=== PATIENT | male | born 1935 | race African-American/Black ===

== ENCOUNTER 2017-08-28 19:07 | Inpatient (IN) | payer MEDICARE ==
[~2017-08-28] VITALS: Ht 193 cm; Wt 102.5 kg
[~2017-08-28 19:07] MED LIST: HYDROMORPH IJ; TEMAZEPAM30 MG ORAL; TORSEMIDE10 MG PO
[2017-08-28] MEDS ORDERED: Sodium Chloride 500ML 500 ML IV ONE (19:15)
[2017-08-28 19:40] VITALS: BP 74/52
[2017-08-28 19:40] LABS: HEMATOCRIT 25.6 % (42.0-52.0); HEMOGLOBIN 8.5 G/DL (14.2-18.0); MEAN CORPUSCULAR VOLUME 116 FL (80-99); PLATELET COUNT 267 K/UL (150-450); RED BLOOD COUNT 2.21 M/UL (4.70-6.10); RED CELL DISTRIBUTION WIDTH 27.3 % (11.6-14.8); WHITE BLOOD COUNT 8.1 K/UL (4.8-10.8)
[2017-08-28 20:01] LABS: ANION GAP 5 mmol/L (5-15); BLOOD UREA NITROGEN 22 mg/dL (7-18); CALCIUM 8.5 MG/DL (8.5-10.1); CARBON DIOXIDE 31 MMOL/L (21-32); CHLORIDE 102 MMOL/L (98-107); CREATININE 4.7 MG/DL (0.55-1.30); SODIUM 138 MMOL/L (136-145)
[2017-08-28 20:14] LABS: ALANINE AMINOTRANSFERASE 15 U/L (12-78); ALBUMIN 2.5 G/DL (3.4-5.0); ALBUMIN/GLOBULIN RATIO 0.8 (1.0-2.7); ALKALINE PHOSPHATASE 179 U/L (46-116); ASPARTATE AMINO TRANSFERASE 28 U/L (15-37); BILIRUBIN,TOTAL 2.4 MG/DL (0.2-1.0); CKMB 1.3 NG/ML (0.0-3.6); CREATINE KINASE 31 U/L (26-308)
[2017-08-28 20:18] LABS: BILIRUBIN,DIRECT 1.6 MG/DL (0.0-0.3)
[2017-08-28] MEDS: Midodrine 10mg tab ORAL SCH (20:19)
[2017-08-28 20:54] VITALS: BP 86/48
[2017-08-28] MEDS ORDERED: ELIQUIS2.5 MG PO (21:30)
[2017-08-28] MEDS ORDERED: MIDODRINE HCL2.5 MG ORAL (21:30)
[2017-08-28] MEDS ORDERED: ALLOPURINOL100 M1 ORAL (21:30)
[2017-08-28] MEDS ORDERED: NEPHROVITE1 TAB ORAL (21:30)
[2017-08-28] MEDS ORDERED: MELATONIN1 M2 PO (21:30)
[2017-08-28] MEDS ORDERED: OMEPRAZOLE20 M2 ORAL (21:30)
[2017-08-28] MEDS ORDERED: METOLAZONE5 MG PO (21:30)
[2017-08-28] MEDS ORDERED: OYSTERCAL-D 501 EACH PO (21:30)
[2017-08-28] MEDS ORDERED: ZANTAC150 MG ORAL (21:30)
[2017-08-28] MEDS ORDERED: VITAMIN D22000 UNIT PO (21:30)
[2017-08-28] MEDS ORDERED: GUAIFENESI100 MG/5 M ORAL (21:43)
[2017-08-28] MEDS ORDERED: TYLENOL EXTRA500 MG ORAL (21:43)
[2017-08-28] MEDS ORDERED: HYDROCORTISONE30 G2 TP (21:43)
[2017-08-28] MEDS ORDERED: BISACODYL5 MG ORAL (21:43)
[2017-08-28] MEDS ORDERED: ALBUTEROL SULF8.5 GM INH (21:43)
[2017-08-28] MEDS ORDERED: BENZONATATE100 MG ORAL (21:43)
[2017-08-28] MEDS ORDERED: TAMSULOSIN HCL0.4 MG ORAL (21:43)
[2017-08-28] MEDS ORDERED: VISTARIL50 MG ORAL (21:43)
[2017-08-28] MEDS ORDERED: DOCUSATE SODIU100 MG ORAL (21:43)
[2017-08-28] MEDS ORDERED: TRAZODONE HCL150 MG ORAL (21:43)
[2017-08-28] MEDS ORDERED: CALCIUM CARBON200 M1 PO (21:43)
[2017-08-28] MEDS ORDERED: MIRALAX17 G2 ORAL (21:43)
[2017-08-28] MEDS ORDERED: SENNA8.6 M2 PO (21:43)
[2017-08-28] MEDS ORDERED: TESSALON PERLE100 MG ORAL (21:43)
[2017-08-28] MEDS ORDERED: Phenylephrine 10mg/ml Vial IVP ONE (21:45)
[2017-08-28] MEDS ORDERED: dilTIAZem HCl 25mg/5ml Inj IVP ONE (22:00)
[2017-08-28 22:14] VITALS: BP 75/52
[2017-08-28] MEDS ORDERED: Lidocaine 1% MPF 10mg/ml 5ml ONE (22:22)
--- NOTE | 2017-08-28 23:11 | Emergency Room Report ---
History of Present Illness General Chief Complaint: General Complaint Source: EMS Present Illness HPI This is an 81-year-old male who is brought in by EMS after increased generalized weakness low blood pressure. Patient was noted to have prior history of end-stage renal disease as well as dialysis. Patient was dialyzed yesterday. The patient had been noted to have low blood pressure for approximately one week. He had prior history of congestive heart failure with an unknown ejection fraction. 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 The patient is DO NOT RESUSCITATE per his wishes however he would like the transfuse and and pressor management if needed. The patient was noted to have increased nonproductive cough. He had been noted to be taking Elliquis for atrial fibrillation which is chronic. The patient still makes urine. He reports having recent hospitalization at [facility]. Patient is normally dialyzed Wednesday and Wednesday Allergies: Coded Allergies: No Known Allergies (Unverified , 08/28/17) Patient History Past Medical History: see triage record Reviewed Nursing Documentation: PMH: Agreed, PSxH: Agreed Nursing Documentation-PMH Past Medical History: No History, Except For Hx Dialysis: Yes - MWF Review of Systems All Other Systems: negative except mentioned in HPI Physical Exam Vital Signs Date Time Temp Pulse Resp B/P (MAP) Pulse Ox O2 Delivery O2 Flow Rate FiO2 08/28/17 18:57 92 18 83/49 100 Nasal Cannula 4.0 08/28/17 19:40 97.6 97.6 08/28/17 22:14 50 Sp02 EP Interpretation: reviewed, normal General Appearance: normal inspection, well appearing, no apparent distress, alert, GCS 15 Head: atraumatic ENT: normal ENT inspection, hearing grossly normal, normal voice Neck: normal inspection, full range of motion, supple, no bony tend Respiratory: normal inspection, lungs clear, normal breath sounds, no respiratory distress, no retraction, no wheezing Cardiovascular #1: regular rate, rhythm, no edema Gastrointestinal: normal inspection, normal bowel sounds, non tender, soft, no guarding, no hernia Genitourinary: no CVA tenderness Musculoskeletal: normal inspection, back normal, normal range of motion Neurologic: normal inspection, alert, responsive, speech normal Psychiatric: normal inspection, judgement/insight normal, mood/affect normal Skin: normal inspection, normal color, no rash Procedures Critical Care Time Critical Care Time Patient had a critical medical condition which untreated could potentially result in life or limb threatening injury. Total critical care time excluding procedures approximately 45 minutes. Central Line Central Line : Consent: Verbal Central Line Lumen: triple Maximal Sterile Barrier Tech: yes cap, yes mask, yes sterile gown, yes sterile gloves, yes large sterile sheet, yes hand hygiene, yes chlorhexidine prep Central Line Postion: internal jugular (L) Anesthesia: Lidocaine Complications: none Central Line Post Position: sutured, good blood return, position confirmed w / CXR Attempts: One Patient Tolerated: Well Complications: None Medical Decision Making Diagnostic Impression: Primary Impression: CHF (congestive heart failure) Additional Impressions: ESRD (end stage renal disease) Atrial fibrillation with RVR Pleural effusion on right ER Course The patient presented for generalized weakness and cough.Patient presented for generalized weakness. Differential diagnosis included was not limited to anemia , cardiomyopathy, urinary tract infection, electrolyte abnormality, hypothyroidism, myocardial infarction, myasthenia gravis, dehydration, among others. Because of complexity of patient's case laboratory testing and imaging studies were ordered. EKG interpreted by me showed H. fibrillation with a rate of [address] or T wave changes. A rhythm strip showed atrial fibrillation with a rate approximately 130. The patient noted be hypotensive. Patient given IV fluids the without any change in blood pressure. Patient consented for the patient started on pressor. Dr. Dominguez was contacted for inpatient management for Dr. Ibrahim. Labs Test 08/28/17 19:15 08/28/17 22:15 08/28/17 23:00 White Blood Count 8.1 K/UL (4.8-10.8) Red Blood Count 2.21 M/UL (4.70-6.10) Hemoglobin 8.5 G/DL (14.2-18.0) Hematocrit 25.6 % (42.0-52.0) Mean Corpuscular Volume 116 FL (80-99) Mean Corpuscular Hemoglobin 38.7 PG (27.0-31.0) Mean Corpuscular Hemoglobin Concent 33.4 G/DL (32.0-36.0) Red Cell Distribution Width 27.3 % (11.6-14.8) Platelet Count 267 K/UL (150-450) Mean Platelet Volume 14.7 FL (6.5-10.1) Neutrophils (%) (Auto) % (45.0-75.0) Lymphocytes (%) (Auto) % (20.0-45.0) Monocytes (%) (Auto) % (1.0-10.0) Eosinophils (%) (Auto) % (0.0-3.0) Basophils (%) (Auto) % (0.0-2.0) Differential Total Cells Counted 100 Neutrophils % (Manual) 40 % (45-75) Lymphocytes % (Manual) 30 % (20-45) Monocytes % (Manual) 16 % (1-10) Eosinophils % (Manual) 9 % (0-3) Basophils % (Manual) 1 % (0-2) Band Neutrophils 4 % (0-8) Platelet Estimate Adequate Platelet Morphology Normal Red Blood Cell Morphology Polychromasia 1+ Hypochromasia 1+ Anisocytosis 2+ Macrocytosis 2+ Sodium Level 138 MMOL/L (136-145) Potassium Level 5.0 MMOL/L (3.5-5.1) Chloride Level 102 MMOL/L (98-107) Carbon Dioxide Level 31 MMOL/L (21-32) Anion Gap 5 mmol/L (5-15) Blood Urea Nitrogen 22 mg/dL (7-18) Creatinine 4.7 MG/DL (0.55-1.30) Estimat Glomerular Filtration Rate mL/min (>60) Glucose Level 105 MG/DL (74-106) Calcium Level 8.5 MG/DL (8.5-10.1) Total Bilirubin 2.4 MG/DL (0.2-1.0) Direct Bilirubin 1.6 MG/DL (0.0-0.3) Aspartate Amino Transf (AST/SGOT) 28 U/L (15-37) Alanine Aminotransferase (ALT/SGPT) 15 U/L (12-78) Alkaline Phosphatase 179 U/L (46-116) Total Creatine Kinase 31 U/L (26-308) Creatine Kinase MB 1.3 NG/ML (0.0-3.6) Creatine Kinase MB Relative Index 4.1 Troponin I 0.042 ng/mL (0.000-0.056) Total Protein 5.6 G/DL (6.4-8.2) Albumin 2.5 G/DL (3.4-5.0) Globulin 3.1 g/dL Albumin/Globulin Ratio 0.8 (1.0-2.7) EKG Diagnostic Results Rate: tachycardiac Rhythm Strip Diag. Results EP Interpretation: yes Rhythm: NSR, no PVC's, no ectopy Last Vital Signs Date Time Temp Pulse Resp B/P (MAP) Pulse Ox O2 Delivery O2 Flow Rate FiO2 08/28/17 22:29 130 22 Bi-pap 50 08/28/17 22:14 100 08/28/17 22:09 75/52 08/28/17 20:54 97.9 3.0 97.9 Status: unchanged Disposition: ADMITTED INPATIENT Condition: Serious Referrals: NON PHYSICIAN (PCP) Roverto Bloom Aug 28, 2017 23:11
[2017-08-28] MEDS ORDERED: cefTRIAXone 2 GM in D5W 55 ML IVPB ONE (23:15)
[2017-08-28 23:30] VITALS: BP 79/51
[2017-08-28] MEDS ORDERED: PHENYLEPHRINE IV SCH (23:45)
[2017-08-28] MEDS ORDERED: NS IV SCH (23:45)
[2017-08-28] MEDS ORDERED: Phenylephrine 10mg/ml 5ml vial IV ONE (23:52)
[2017-08-29] VITALS (36 sets, daily range): BP systolic 61–121; BP diastolic 34–99
[2017-08-29] MEDS: Phenylephrine 50 MG in D5W 245 ML IV SCH ×2 (00:55→06:21)
[2017-08-29] MEDS ORDERED: Vancomycin 1500mg IVPB ONE (04:30)
[2017-08-29] MEDS: Heparin 5000 units/ml inj SUBQ SCH ×2 (05:27→09:29)
[2017-08-29] MEDS ORDERED: Zosyn 2.25gm inj ONE (05:29)
[2017-08-29] MEDS ORDERED: Phenylephrine 10mg/ml 5ml vial IV ONE (05:58)
[2017-08-29] MEDS ORDERED: Zosyn 2.25 gm in D5W 55ml IV SCH (06:00)
[2017-08-29 06:16] LABS: HEMATOCRIT 23.5 % (42.0-52.0); HEMOGLOBIN 7.7 G/DL (14.2-18.0); MEAN CORPUSCULAR VOLUME 118 FL (80-99); PLATELET COUNT 288 K/UL (150-450); RED CELL DISTRIBUTION WIDTH 27.1 % (11.6-14.8); WHITE BLOOD COUNT 8.8 K/UL (4.8-10.8)
[2017-08-29 06:51] LABS: ALANINE AMINOTRANSFERASE 12 U/L (12-78); ALBUMIN 2.5 G/DL (3.4-5.0); ALBUMIN/GLOBULIN RATIO 0.9 (1.0-2.7); ALKALINE PHOSPHATASE 158 U/L (46-116); ANION GAP 7 mmol/L (5-15); ASPARTATE AMINO TRANSFERASE 16 U/L (15-37); BILIRUBIN,TOTAL 2.4 MG/DL (0.2-1.0); BLOOD UREA NITROGEN 23 mg/dL (7-18); CALCIUM 8.2 MG/DL (8.5-10.1); CARBON DIOXIDE 30 MMOL/L (21-32); CHLORIDE 102 MMOL/L (98-107); POTASSIUM 4.4 MMOL/L (3.5-5.1); SODIUM 139 MMOL/L (136-145)
[2017-08-29 06:52] LABS: BILIRUBIN,DIRECT 1.7 MG/DL (0.0-0.3)
[2017-08-29] MEDS ORDERED: Zosyn 3.375gm in NS 110ml IVPB SCH (09:00)
[2017-08-29] MEDS ORDERED: Pantoprazole Inj IVP SCH ×2 (09:00→11:00)
[2017-08-29] MEDS: Midodrine 10mg tab ORAL SCH (09:25)
--- NOTE | 2017-08-29 09:33 | Diagnostic Imaging Report ---
Indication: Reason For Exam: SOB Technique: XRAY Chest 1v Comparison:None Findings: The heart is enlarged. There is an ICD on the left. A right jugular dialysis catheter is in place with the tip in the right atrium. Pulmonary vascular redistribution is present. There is a right pleural effusion. No acute osseous abnormality. Impression: Cardiomegaly with congestive heart failure and right pleural effusion. Dialysis permacath. ICD.
--- NOTE | 2017-08-29 10:08 | Diagnostic Imaging Report ---
Indication: Line placement Technique: XRAY Chest 1v Comparison:08/28/2017 Findings: Compared previous study the heart remains enlarged. This image is in a different position. Right pleural effusion is again noted which is probably unchanged. Congestive changes are again seen. A left jugular central catheter is now in place with the tip in the region of the left brachiocephalic vein. No pneumothorax. No other change. Impression: Cardiomegaly with congestive heart failure and right pleural effusion. ICD remains. Placement of left jugular central catheter with the tip in the region of the brachiocephalic vein. Remaining lines unchanged.
--- NOTE | 2017-08-29 10:51 | Consultation ---
Consult Note Consult Note asked to evaluate for dialysis management This is an 81-year-old male who is brought in by EMS after increased generalized weakness low blood pressure. Patient was noted to have prior history of end-stage renal disease as well as dialysis. Patient was dialyzed yesterday. The patient had been noted to have low blood pressure for approximately one week. He had prior history of congestive heart failure with an unknown ejection fraction. 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 The patient is DO NOT RESUSCITATE per his wishes however he would like the transfuse and and pressor management if needed. The patient was noted to have increased nonproductive cough. He had been noted to be taking Elliquis for atrial fibrillation which is chronic. The patient still makes urine. He reports having recent hospitalization at [facility]. Patient is normally dialyzed Wednesday and Wednesday currently in ICU max pressors obtunded discussed with RN last HD Wednesday Assessment/Plan ESRD has right permacath presents with shock, ? Septic Acute encephalopathy Anemia Pace maker plan: Transfuse one unit- IV protonix trial hydrocortisone iv manrique antibiotics poor prognosis KRISTEL NUNO Aug 29, 2017 10:51
--- NOTE | 2017-08-29 11:04 | Pulmonolgy Critical Care Note ---
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, 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 Discussed with: nurses, consultants, pillowcase folderinclusion manager - Objective Last 24 Hour Vital Signs Date Time Temp Pulse Resp B/P (MAP) Pulse Ox O2 Delivery O2 Flow Rate FiO2 08/29/17 07:00 132 28 79/54 100 Nasal Cannula 3.0 08/29/17 06:30 130 26 78/51 100 Nasal Cannula 3.0 08/29/17 06:21 127 77/46 08/29/17 05:30 128 32 61/51 100 Nasal Cannula 3.0 08/29/17 05:00 133 30 90/58 100 Nasal Cannula 3.0 08/29/17 04:45 134 30 72/46 100 Nasal Cannula 3.0 08/29/17 04:30 134 30 76/44 100 Nasal Cannula 3.0 08/29/17 04:15 133 30 85/58 100 Nasal Cannula 3.0 08/29/17 04:00 98.3 133 30 89/61 100 Nasal Cannula 3.0 98.3 08/29/17 04:00 132 08/29/17 03:45 133 30 96/58 100 Nasal Cannula 3.0 08/29/17 03:30 133 30 96/58 100 Nasal Cannula 3.0 08/29/17 03:15 133 24 76/63 100 Nasal Cannula 3.0 08/29/17 03:00 134 26 89/51 100 Nasal Cannula 3.0 08/29/17 02:45 134 25 89/51 100 Nasal Cannula 3.0 08/29/17 02:30 134 24 84/51 100 Nasal Cannula 3.0 08/29/17 02:15 133 24 96/47 100 Nasal Cannula 3.0 08/29/17 02:00 133 08/29/17 02:00 98.3 133 24 96/47 100 Nasal Cannula 3.0 98.3 08/29/17 01:45 97.2 119 24 104/86 100 Bi-pap 3.0 50 97.2 08/29/17 01:32 97.2 119 24 104/86 100 Bi-pap 3.0 50 97.2 08/29/17 00:55 130 71/44 08/29/17 00:30 97.9 129 24 121/99 96 Bi-pap 3.0 50 97.9 08/28/17 23:30 97.9 125 28 79/51 100 Bi-pap 3.0 50 97.9 08/28/17 22:29 130 22 Bi-pap 50 08/28/17 22:14 97.9 127 22 75/52 100 3.0 50 97.9 08/28/17 22:14 130 22 100 Facial 50 08/28/17 22:09 129 75/52 08/28/17 20:54 97.9 127 18 86/48 100 Nasal Cannula 3.0 97.9 08/28/17 19:40 97.6 128 18 74/52 100 Nasal Cannula 4.0 97.6 08/28/17 18:57 92 18 83/49 100 Nasal Cannula 4.0 Status: somnolent Condition: critical HEENT: atraumatic Neck: full ROM Lungs: clear Heart: HR/BP stable Abdomen: soft, non-tender Extremities: no C/C/E, edema Critical Care - Subjective ROS Limited/Unobtainable: Yes ICU Day: 1 Interval Events: 81-year-old male with hx of ESRF on HD, CHf, A-fib, ES heart disease with ICD who is brought in by EMS after increased generalized weakness low blood pressure. Patient was dialyzed yesterday. The patient has low blood pressure for approximately one week. The patient is DO NOT RESUSCITATE per his wishes however he would like the transfuse and and pressor management if needed. The patient was noted to have increased nonproductive cough. The patient still makes urine. He reports having recent hospitalization at [facility]. Patient is normally dialyzed Wednesday and Wednesday. He was hypotensive in ER, was started on Neosynephrine in ER and transferred to ICU. FI02: 50 Sputum Amount: None Drips: Neosynephrine I&O: Intake and Output 08/28/17 08/29/17 19:00 07:00 Intake Total 291 ml Output Total 10 ml Balance 281 ml Intake Oral 30 ml IV Total 261 ml Output Urine Total 10 ml # Voids 1 CXR: pulmonary edema, pleural effusion Labs: Laboratory Tests Test 08/28/17 19:15 08/28/17 22:15 08/28/17 23:00 08/29/17 05:45 White Blood Count 8.1 K/UL (4.8-10.8) 8.8 K/UL (4.8-10.8) Red Blood Count 2.21 M/UL (4.70-6.10) L 2.00 M/UL (4.70-6.10) L Hemoglobin 8.5 G/DL (14.2-18.0) L 7.7 G/DL (14.2-18.0) L Hematocrit 25.6 % (42.0-52.0) L 23.5 % (42.0-52.0) L Mean Corpuscular Volume 116 FL (80-99) H 118 FL (80-99) H Mean Corpuscular Hemoglobin 38.7 PG (27.0-31.0) H 38.6 PG (27.0-31.0) H Mean Corpuscular Hemoglobin Concent 33.4 G/DL (32.0-36.0) 32.7 G/DL (32.0-36.0) Red Cell Distribution Width 27.3 % (11.6-14.8) H 27.1 % (11.6-14.8) H Platelet Count 267 K/UL (150-450) 288 K/UL (150-450) Mean Platelet Volume 14.7 FL (6.5-10.1) H 12.5 FL (6.5-10.1) H Neutrophils (%) (Auto) % (45.0-75.0) % (45.0-75.0) Lymphocytes (%) (Auto) % (20.0-45.0) % (20.0-45.0) Monocytes (%) (Auto) % (1.0-10.0) % (1.0-10.0) Eosinophils (%) (Auto) % (0.0-3.0) % (0.0-3.0) Basophils (%) (Auto) % (0.0-2.0) % (0.0-2.0) Differential Total Cells Counted 100 100 Neutrophils % (Manual) 40 % (45-75) L 70 % (45-75) Lymphocytes % (Manual) 30 % (20-45) 7 % (20-45) L Monocytes % (Manual) 16 % (1-10) H 11 % (1-10) H Eosinophils % (Manual) 9 % (0-3) H 7 % (0-3) H Basophils % (Manual) 1 % (0-2) 0 % (0-2) Band Neutrophils 4 % (0-8) 5 % (0-8) Platelet Estimate Adequate Adequate Platelet Morphology Normal Normal Red Blood Cell Morphology Polychromasia 1+ Hypochromasia 1+ 1+ Anisocytosis 2+ 2+ Macrocytosis 2+ 2+ Sodium Level 138 MMOL/L (136-145) 139 MMOL/L (136-145) Potassium Level 5.0 MMOL/L (3.5-5.1) 4.4 MMOL/L (3.5-5.1) Chloride Level 102 MMOL/L (98-107) 102 MMOL/L (98-107) Carbon Dioxide Level 31 MMOL/L (21-32) 30 MMOL/L (21-32) Anion Gap 5 mmol/L (5-15) 7 mmol/L (5-15) Blood Urea Nitrogen 22 mg/dL (7-18) H 23 mg/dL (7-18) H Creatinine 4.7 MG/DL (0.55-1.30) H 5.0 MG/DL (0.55-1.30) H Estimat Glomerular Filtration Rate mL/min (>60) mL/min (>60) Glucose Level 105 MG/DL (74-106) 107 MG/DL (74-106) H Lactic Acid Level 2.00 mmol/L (0.66-2.22) 1.70 mmol/L (0.66-2.22) Calcium Level 8.5 MG/DL (8.5-10.1) 8.2 MG/DL (8.5-10.1) L Total Bilirubin 2.4 MG/DL (0.2-1.0) H 2.4 MG/DL (0.2-1.0) H Direct Bilirubin 1.6 MG/DL (0.0-0.3) H 1.7 MG/DL (0.0-0.3) H Aspartate Amino Transf (AST/SGOT) 28 U/L (15-37) 16 U/L (15-37) Alanine Aminotransferase (ALT/SGPT) 15 U/L (12-78) 12 U/L (12-78) Alkaline Phosphatase 179 U/L (46-116) H 158 U/L (46-116) H Total Creatine Kinase 31 U/L (26-308) Creatine Kinase MB 1.3 NG/ML (0.0-3.6) Creatine Kinase MB Relative Index 4.1 Troponin I 0.042 ng/mL (0.000-0.056) 0.026 ng/mL (0.000-0.056) Total Protein 5.6 G/DL (6.4-8.2) L 5.3 G/DL (6.4-8.2) L Albumin 2.5 G/DL (3.4-5.0) L 2.5 G/DL (3.4-5.0) L Globulin 3.1 g/dL 2.8 g/dL Albumin/Globulin Ratio 0.8 (1.0-2.7) L 0.9 (1.0-2.7) L Urine Color Pending Urine Appearance Pending Urine pH Pending Urine Specific [place] Pending Urine Protein Pending Urine Glucose (UA) Pending Urine Ketones Pending Urine Occult Blood Pending Urine Nitrite Pending Urine Bilirubin Pending Urine Urobilinogen Pending Urine Leukocyte Esterase Pending DESHAUN PARADA Aug 29, 2017 11:04
[2017-08-29] MEDS ORDERED: Hydrocortisone 100mg Inj IV ONE (11:15)
[2017-08-29 11:26] LABS: PHOSPHORUS 4.1 MG/DL (2.5-4.9)
[2017-08-29] MEDS ORDERED: Morphine Sulfate 4mg/ml Inj ONE (11:50)
[2017-08-29] MEDS ORDERED: Phenylephrine 50 MG in D5W 245 ML IV SCH (12:00)
[2017-08-29] MEDS ORDERED: Morphine Sulfate 2mg/ml Inj IVP PRN (12:00)
[2017-08-29] MEDS: Morphine Sulfate 4mg/ml Inj IVP PRN ×2 (13:23→14:50)
[2017-08-29] MEDS ORDERED: Piperacillin/Tazobactam 2.25 GM in NS 55 ML IV SCH (14:00)
[2017-08-29] MEDS ORDERED: Hydrocortisone 100mg Inj IV SCH (14:00)
--- NOTE | 2017-08-29 14:20 | Cardiac Electrophysiology PN ---
Subjective Subjective [id number] Family decided for the patient to be comfort care Objective Last 24 Hour Vital Signs Date Time Temp Pulse Resp B/P (MAP) Pulse Ox O2 Delivery O2 Flow Rate FiO2 08/29/17 11:00 123 37 77/48 87 Nasal Cannula 3.0 08/29/17 10:30 129 35 85/55 82 Nasal Cannula 3.0 08/29/17 10:00 129 34 95/49 84 Nasal Cannula 3.0 08/29/17 09:30 129 35 84/53 90 Nasal Cannula 3.0 08/29/17 09:00 131 34 85/48 90 Nasal Cannula 3.0 08/29/17 08:30 127 34 70/42 85 Nasal Cannula 3.0 08/29/17 08:00 125 08/29/17 08:00 98.2 129 32 92/53 80 Nasal Cannula 3.0 98.2 08/29/17 07:30 131 30 88/51 86 Nasal Cannula 3.0 08/29/17 07:00 132 28 79/54 100 Nasal Cannula 3.0 08/29/17 06:30 130 26 78/51 100 Nasal Cannula 3.0 08/29/17 06:21 127 77/46 08/29/17 05:30 128 32 61/51 100 Nasal Cannula 3.0 08/29/17 05:00 133 30 90/58 100 Nasal Cannula 3.0 08/29/17 04:45 134 30 72/46 100 Nasal Cannula 3.0 08/29/17 04:30 134 30 76/44 100 Nasal Cannula 3.0 08/29/17 04:15 133 30 85/58 100 Nasal Cannula 3.0 08/29/17 04:00 98.3 133 30 89/61 100 Nasal Cannula 3.0 98.3 08/29/17 04:00 132 08/29/17 03:45 133 30 96/58 100 Nasal Cannula 3.0 08/29/17 03:30 133 30 96/58 100 Nasal Cannula 3.0 08/29/17 03:15 133 24 76/63 100 Nasal Cannula 3.0 08/29/17 03:00 134 26 89/51 100 Nasal Cannula 3.0 08/29/17 02:45 134 25 89/51 100 Nasal Cannula 3.0 08/29/17 02:30 134 24 84/51 100 Nasal Cannula 3.0 08/29/17 02:15 133 24 96/47 100 Nasal Cannula 3.0 08/29/17 02:00 133 08/29/17 02:00 98.3 133 24 96/47 100 Nasal Cannula 3.0 98.3 08/29/17 01:45 97.2 119 24 104/86 100 Bi-pap 3.0 50 97.2 08/29/17 01:32 97.2 119 24 104/86 100 Bi-pap 3.0 50 97.2 08/29/17 00:55 130 71/44 08/29/17 00:30 97.9 129 24 121/99 96 Bi-pap 3.0 50 97.9 08/28/17 23:30 97.9 125 28 79/51 100 Bi-pap 3.0 50 97.9 08/28/17 22:29 130 22 Bi-pap 50 08/28/17 22:14 97.9 127 22 75/52 100 3.0 50 97.9 08/28/17 22:14 130 22 100 Facial 50 08/28/17 22:09 129 75/52 08/28/17 20:54 97.9 127 18 86/48 100 Nasal Cannula 3.0 97.9 08/28/17 19:40 97.6 128 18 74/52 100 Nasal Cannula 4.0 97.6 08/28/17 18:57 92 18 83/49 100 Nasal Cannula 4.0 Intake and Output 08/28/17 08/29/17 19:00 07:00 Intake Total 291 ml Output Total 10 ml Balance 281 ml Intake Oral 30 ml IV Total 261 ml Output Urine Total 10 ml # Voids 1 Laboratory Tests Test 08/28/17 19:15 08/28/17 22:15 08/28/17 23:00 08/29/17 05:45 White Blood Count 8.1 K/UL (4.8-10.8) 8.8 K/UL (4.8-10.8) Red Blood Count 2.21 M/UL (4.70-6.10) L 2.00 M/UL (4.70-6.10) L Hemoglobin 8.5 G/DL (14.2-18.0) L 7.7 G/DL (14.2-18.0) L Hematocrit 25.6 % (42.0-52.0) L 23.5 % (42.0-52.0) L Mean Corpuscular Volume 116 FL (80-99) H 118 FL (80-99) H Mean Corpuscular Hemoglobin 38.7 PG (27.0-31.0) H 38.6 PG (27.0-31.0) H Mean Corpuscular Hemoglobin Concent 33.4 G/DL (32.0-36.0) 32.7 G/DL (32.0-36.0) Red Cell Distribution Width 27.3 % (11.6-14.8) H 27.1 % (11.6-14.8) H Platelet Count 267 K/UL (150-450) 288 K/UL (150-450) Mean Platelet Volume 14.7 FL (6.5-10.1) H 12.5 FL (6.5-10.1) H Neutrophils (%) (Auto) % (45.0-75.0) % (45.0-75.0) Lymphocytes (%) (Auto) % (20.0-45.0) % (20.0-45.0) Monocytes (%) (Auto) % (1.0-10.0) % (1.0-10.0) Eosinophils (%) (Auto) % (0.0-3.0) % (0.0-3.0) Basophils (%) (Auto) % (0.0-2.0) % (0.0-2.0) Differential Total Cells Counted 100 100 Neutrophils % (Manual) 40 % (45-75) L 70 % (45-75) Lymphocytes % (Manual) 30 % (20-45) 7 % (20-45) L Monocytes % (Manual) 16 % (1-10) H 11 % (1-10) H Eosinophils % (Manual) 9 % (0-3) H 7 % (0-3) H Basophils % (Manual) 1 % (0-2) 0 % (0-2) Band Neutrophils 4 % (0-8) 5 % (0-8) Platelet Estimate Adequate Adequate Platelet Morphology Normal Normal Red Blood Cell Morphology Polychromasia 1+ Hypochromasia 1+ 1+ Anisocytosis 2+ 2+ Macrocytosis 2+ 2+ Sodium Level 138 MMOL/L (136-145) 139 MMOL/L (136-145) Potassium Level 5.0 MMOL/L (3.5-5.1) 4.4 MMOL/L (3.5-5.1) Chloride Level 102 MMOL/L (98-107) 102 MMOL/L (98-107) Carbon Dioxide Level 31 MMOL/L (21-32) 30 MMOL/L (21-32) Anion Gap 5 mmol/L (5-15) 7 mmol/L (5-15) Blood Urea Nitrogen 22 mg/dL (7-18) H 23 mg/dL (7-18) H Creatinine 4.7 MG/DL (0.55-1.30) H 5.0 MG/DL (0.55-1.30) H Estimat Glomerular Filtration Rate mL/min (>60) mL/min (>60) Glucose Level 105 MG/DL (74-106) 107 MG/DL (74-106) H Lactic Acid Level 2.00 mmol/L (0.66-2.22) 1.70 mmol/L (0.66-2.22) Calcium Level 8.5 MG/DL (8.5-10.1) 8.2 MG/DL (8.5-10.1) L Total Bilirubin 2.4 MG/DL (0.2-1.0) H 2.4 MG/DL (0.2-1.0) H Direct Bilirubin 1.6 MG/DL (0.0-0.3) H 1.7 MG/DL (0.0-0.3) H Aspartate Amino Transf (AST/SGOT) 28 U/L (15-37) 16 U/L (15-37) Alanine Aminotransferase (ALT/SGPT) 15 U/L (12-78) 12 U/L (12-78) Alkaline Phosphatase 179 U/L (46-116) H 158 U/L (46-116) H Total Creatine Kinase 31 U/L (26-308) Creatine Kinase MB 1.3 NG/ML (0.0-3.6) Creatine Kinase MB Relative Index 4.1 Troponin I 0.042 ng/mL (0.000-0.056) 0.026 ng/mL (0.000-0.056) Total Protein 5.6 G/DL (6.4-8.2) L 5.3 G/DL (6.4-8.2) L Albumin 2.5 G/DL (3.4-5.0) L 2.5 G/DL (3.4-5.0) L Globulin 3.1 g/dL 2.8 g/dL Albumin/Globulin Ratio 0.8 (1.0-2.7) L 0.9 (1.0-2.7) L Urine Color Pending Urine Appearance Pending Urine pH Pending Urine Specific [place] Pending Urine Protein Pending Urine Glucose (UA) Pending Urine Ketones Pending Urine Occult Blood Pending Urine Nitrite Pending Urine Bilirubin Pending Urine Urobilinogen Pending Urine Leukocyte Esterase Pending Uric Acid 3.6 MG/DL (2.6-7.2) Phosphorus Level 4.1 MG/DL (2.5-4.9) Magnesium Level 1.8 MG/DL (1.8-2.4) NELSON COUGHLIN Aug 29, 2017 14:20
[2017-08-29] MEDS ORDERED: D5W 275ml ONE (16:13)
[2017-08-29] MEDS ORDERED: NS 275ml ONE (16:14)
[2017-08-29] MEDS ORDERED: PCA Morphine 1mg/ml 30 ML IV PRN (16:15)
[2017-08-29] MEDS ORDERED: Morphine Sulfate 4mg/ml Inj IVP PRN ×2 (16:30→19:15)
--- NOTE | 2017-08-29 16:40 | History & Physical ---
History and Physical History & Physicial Patient seen and examined. D/w in detailed with family at bedside and consultants regarding poor prognosis. Family requesting comfort measures only. Full H&P to follow Will continue comfort care and IV morphine gtt at this time. Rina Murrell N.P. Aug 29, 2017 16:40
--- NOTE | 2017-08-29 18:15 | Consultation ---
DATE OF CONSULTATION: 08/29/2017 CARDIOLOGY CONSULTATION CONSULTING PHYSICIAN: Zane Gutierrez M.D. REFERRING PHYSICIAN: Bing Macdonald M.D. REASON FOR CONSULTATION: Atrial fibrillation with rapid ventricular response and hypotension. HISTORY OF PRESENT ILLNESS: The patient is an 81-year-old gentleman, who is DNR/DNI, was brought in by EMS for generalized weakness and low blood pressure. The patient has history of end-stage renal disease, on hemodialysis and was dialyzed yesterday. He also has history of congestive heart failure and usually under the care of anesthesiologist at [facility]. The patient was admitted to intensive care unit and was started on pressors. The patient also has been on Eliquis for atrial fibrillation, which is a chronic issue. The patient had also recent hospitalization at [facility]. Upon my evaluation, the patient is unresponsive in intensive care unit and family just made him comfort care. PAST MEDICAL HISTORY: Includes: 1. Hypertension. 2. Atrial fibrillation. 3. Congestive heart failure. 4. History of dual-chamber defibrillator implantation. FAMILY HISTORY: Noncontributory. REVIEW OF SYSTEMS: Cannot be obtained. PHYSICAL EXAMINATION: VITAL SIGNS: Show blood pressure of 77/48, pulse is 123, and respirations 37. HEAD AND NECK: Shows positive JVD. LUNGS: Coarse rhonchi. CARDIOVASCULAR: Shows irregular S1 and S2. Defibrillator is at left subclavian. ABDOMEN: Soft. EXTREMITIES: A 2+ pitting edema. Dialysis access in the right subclavian. LABORATORY DATA: Show white count of 8.8, hemoglobin 7.7, hematocrit of 23.5, and platelet count of 288,000. Sodium 139, potassium 4.4, BUN of 22, creatinine of 5.1, and glucose of 107. Troponin is negative. ASSESSMENT AND PLAN: 1. Atrial fibrillation with rapid ventricular response. This has been a chronic issue for him. The patient was on Eliquis as an outpatient. I discussed the case with the patient's and daughter at the bedside, who wished no further cardiac medication and made the patient comfort care. 2. Hypotension, likely septic shock. The pressors were discontinued at the request of family and the patient is now comfort care. 3. History of dual-chamber defibrillator implantation. 4. Severe anemia. 5. End-stage renal disease, on hemodialysis. Thank you very much, Dr. Macdonald, for allowing me to participate in the care of this patient. Please do not hesitate to contact me for any questions regarding my evaluation. Zane Gutierrez M.D. DR: Ronni JOB#: [id number] CC:
[2017-08-29] MEDS ORDERED: PCA shift volume MISC SCH ×2 (19:00)
[2017-08-29] MEDS: PCA Morphine 1mg/ml 30 ML IV PRN (20:24)
--- NOTE | 2017-08-29 23:29 | History and Physical ---
History of Present Illness General Date patient seen: Aug 29, 2017 Time patient seen: 16:25 Reason for Hospitalization: General Complaint Present Illness HPI 81 y/o male with a PMH of ESRD on HD, CHF with low EF, s/p ICD, A. vasu was brought in my EMS after lethargy and hypotension. Patient was dialyzed on Wednesday. Per family, patient regularly undergoes dialysis M// but missed his dialysis on Wednesday because patient was not feeling well. Patient was noted to have increased cough with lethargy. Patient is DNR. Patient was started on Neosynephrine gtt in ER and transferred to ICU. Per further discussion with family and all consultants, family requesting to resort to palliative care at this time given poor prognosis and was started on a morphine gtt. Currently, patient is resting comfortably in bed, difficult to arouse. Allergies: Coded Allergies: No Known Allergies (Unverified , 08/28/17) Medication History Scheduled Albuterol Sulfate* (Albuterol Sulfate Mdi*), 2 PUFF INH Q4H, (Reported) Allopurinol* (Allopurinol*), 100 MG ORAL BEDTIME, (Reported) Apixaban (Eliquis), 2.5 MG PO BID, (Reported) Benzonatate* (Benzonatate*), 100 MG ORAL THREE TIMES A DAY, (Reported) Benzonatate* (Tessalon Perle*), 150 MG ORAL THREE TIMES A DAY, (Reported) Calcium Carbonate (Calcium Carbonate), 200 MG PO TID, (Reported) Calcium Carbonate/Vitamin D3 (Oystercal-D 500 mg-400 Unit Tb), 1 EACH PO TID, ( Reported) Docusate Sodium* (Docusate Sodium*), 100 MG ORAL TWICE A DAY, (Reported) Ergocalciferol (Vitamin D2) (Vitamin D2), 5,000 UNIT PO DAILY, (Reported) Guaifenesin* (Guaifenesin), 10 ML ORAL Q4H, (Reported) Hydrocortisone (Hydrocortisone Cream 2.5%), 1 APPLIC TP BID, (Reported) Hydroxyzine Pamoate* (Vistaril*), 50 MG ORAL EVERY 6 HOURS, (Reported) Melatonin (Melatonin), 3 MG PO BEDTIME, (Reported) Metolazone (Metolazone), 5 MG PO DAILY, (Reported) Midodrine* (Proamatine*), 7.5 MG ORAL QID, (Reported) Omeprazole (Omeprazole), 20 MG ORAL DAILY, (Reported) Polyethylene Glycol 3350* (Miralax*), 17 GM ORAL DAILY, (Reported) Ranitidine Hcl* (Zantac*), 150 MG ORAL TWICE A DAY, (Reported) Sennosides (Senna), 17.2 MG PO BEDTIME, (Reported) Tamsulosin Hcl (Tamsulosin Hcl*), 0.4 MG ORAL DAILY, (Reported) Torsemide* (Demadex*), 10 MG PO DAILY, (Reported) Trazodone* (Trazodone*), 50 MG ORAL BEDTIME, (Reported) Vitamin B Cmplx/Vit C/Folic AC (Nephro-Nyasia Tablet), 1 TAB ORAL DAILY, (Reported ) Scheduled PRN Acetaminophen* (Tylenol Extra Strength*), 325 MG ORAL Q6H PRN for Mild Pain/ Temp > 100.5, (Reported) Bisacodyl* (Dulcolax*), 10 MG ORAL DAILY PRN for Constipation, (Reported) Temazepam* (Temazepam*), 30 MG ORAL BEDTIME PRN for Insomnia, (Reported) Miscellaneous Medications Hydromorphone Hcl/Pf (Hydromorphone 50 Mg/5 Ml Vial), 10 MG IJ, (Reported) Patient History Limited by: medical condition History Provided By: Family Member Healthcare decision maker pt himself Resuscitation status Do Not Resuscitate Advanced Directive on File No Review of Systems ROS Narrative unable to obtain due to mental status Physical Exam General Appearance: other - difficult to arouse, responds to painful stimuli Lines, tubes and drains: other - right permacath HEENT: normocephalic, atraumatic Neck: non-tender, normal alignment, supple Respiratory/Chest: chest wall non-tender, crackles/rales, rhonchi - bilaterally Cardiovascular/Chest: normal peripheral pulses, regularly irregular Abdomen: normal bowel sounds, non tender, soft Extremities: severe edema Skin Exam: normal pigmentation, warm/dry Neurologic: unresponsiveness Last 24 Hour Vital Signs Date Time Temp Pulse Resp B/P (MAP) Pulse Ox O2 Delivery O2 Flow Rate FiO2 08/29/17 22:10 10 2/25/18 21:53 10 08/29/17 21:23 16 08/29/17 20:40 20 08/29/17 20:25 20 08/29/17 20:00 98.4 125 19 72/44 93 98.4 08/29/17 19:00 98.4 125 19 72/44 93 98.4 08/29/17 18:00 136 24 67/34 87 Nasal Cannula 3.0 08/29/17 17:00 132 28 74/44 87 Nasal Cannula 3.0 08/29/17 16:00 131 25 68/38 87 Nasal Cannula 3.0 08/29/17 16:00 123 08/29/17 15:00 129 26 68/48 87 Nasal Cannula 3.0 08/29/17 14:00 127 31 79/58 87 Nasal Cannula 3.0 08/29/17 13:00 126 29 67/46 87 Nasal Cannula 3.0 08/29/17 12:00 124 34 65/34 87 Nasal Cannula 3.0 08/29/17 12:00 126 08/29/17 11:30 125 36 68/39 87 Nasal Cannula 3.0 08/29/17 11:00 123 37 77/48 87 Nasal Cannula 3.0 08/29/17 10:30 129 35 85/55 82 Nasal Cannula 3.0 08/29/17 10:00 129 34 95/49 84 Nasal Cannula 3.0 08/29/17 09:30 129 35 84/53 90 Nasal Cannula 3.0 08/29/17 09:00 131 34 85/48 90 Nasal Cannula 3.0 08/29/17 08:30 127 34 70/42 85 Nasal Cannula 3.0 08/29/17 08:00 125 08/29/17 08:00 98.2 129 32 92/53 80 Nasal Cannula 3.0 98.2 08/29/17 07:30 131 30 88/51 86 Nasal Cannula 3.0 08/29/17 07:00 132 28 79/54 100 Nasal Cannula 3.0 08/29/17 06:30 130 26 78/51 100 Nasal Cannula 3.0 08/29/17 06:21 127 77/46 08/29/17 05:30 128 32 61/51 100 Nasal Cannula 3.0 08/29/17 05:00 133 30 90/58 100 Nasal Cannula 3.0 08/29/17 04:45 134 30 72/46 100 Nasal Cannula 3.0 08/29/17 04:30 134 30 76/44 100 Nasal Cannula 3.0 08/29/17 04:15 133 30 85/58 100 Nasal Cannula 3.0 08/29/17 04:00 98.3 133 30 89/61 100 Nasal Cannula 3.0 98.3 08/29/17 04:00 132 08/29/17 03:45 133 30 96/58 100 Nasal Cannula 3.0 08/29/17 03:30 133 30 96/58 100 Nasal Cannula 3.0 08/29/17 03:15 133 24 76/63 100 Nasal Cannula 3.0 08/29/17 03:00 134 26 89/51 100 Nasal Cannula 3.0 08/29/17 02:45 134 25 89/51 100 Nasal Cannula 3.0 08/29/17 02:30 134 24 84/51 100 Nasal Cannula 3.0 08/29/17 02:15 133 24 96/47 100 Nasal Cannula 3.0 08/29/17 02:00 133 08/29/17 02:00 98.3 133 24 96/47 100 Nasal Cannula 3.0 98.3 08/29/17 01:45 97.2 119 24 104/86 100 Bi-pap 3.0 50 97.2 08/29/17 01:32 97.2 119 24 104/86 100 Bi-pap 3.0 50 97.2 08/29/17 00:55 130 71/44 08/29/17 00:30 97.9 129 24 121/99 96 Bi-pap 3.0 50 97.9 08/28/17 23:30 97.9 125 28 79/51 100 Bi-pap 3.0 50 97.9 Intake and Output 08/28/17 08/29/17 19:00 07:00 Intake Total 291 ml Output Total 10 ml Balance 281 ml Intake Oral 30 ml IV Total 261 ml Output Urine Total 10 ml # Voids 1 Laboratory Tests Test 08/29/17 05:45 White Blood Count 8.8 K/UL (4.8-10.8) Red Blood Count 2.00 M/UL (4.70-6.10) L Hemoglobin 7.7 G/DL (14.2-18.0) L Hematocrit 23.5 % (42.0-52.0) L Mean Corpuscular Volume 118 FL (80-99) H Mean Corpuscular Hemoglobin 38.6 PG (27.0-31.0) H Mean Corpuscular Hemoglobin Concent 32.7 G/DL (32.0-36.0) Red Cell Distribution Width 27.1 % (11.6-14.8) H Platelet Count 288 K/UL (150-450) Mean Platelet Volume 12.5 FL (6.5-10.1) H Neutrophils (%) (Auto) % (45.0-75.0) Lymphocytes (%) (Auto) % (20.0-45.0) Monocytes (%) (Auto) % (1.0-10.0) Eosinophils (%) (Auto) % (0.0-3.0) Basophils (%) (Auto) % (0.0-2.0) Differential Total Cells Counted 100 Neutrophils % (Manual) 70 % (45-75) Lymphocytes % (Manual) 7 % (20-45) L Monocytes % (Manual) 11 % (1-10) H Eosinophils % (Manual) 7 % (0-3) H Basophils % (Manual) 0 % (0-2) Band Neutrophils 5 % (0-8) Platelet Estimate Adequate Platelet Morphology Normal Hypochromasia 1+ Anisocytosis 2+ Macrocytosis 2+ Sodium Level 139 MMOL/L (136-145) Potassium Level 4.4 MMOL/L (3.5-5.1) Chloride Level 102 MMOL/L (98-107) Carbon Dioxide Level 30 MMOL/L (21-32) Anion Gap 7 mmol/L (5-15) Blood Urea Nitrogen 23 mg/dL (7-18) H Creatinine 5.0 MG/DL (0.55-1.30) H Estimat Glomerular Filtration Rate mL/min (>60) Glucose Level 107 MG/DL (74-106) H Uric Acid 3.6 MG/DL (2.6-7.2) Calcium Level 8.2 MG/DL (8.5-10.1) L Phosphorus Level 4.1 MG/DL (2.5-4.9) Magnesium Level 1.8 MG/DL (1.8-2.4) Total Bilirubin 2.4 MG/DL (0.2-1.0) H Direct Bilirubin 1.7 MG/DL (0.0-0.3) H Aspartate Amino Transf (AST/SGOT) 16 U/L (15-37) Alanine Aminotransferase (ALT/SGPT) 12 U/L (12-78) Alkaline Phosphatase 158 U/L (46-116) H Troponin I 0.026 ng/mL (0.000-0.056) Total Protein 5.3 G/DL (6.4-8.2) L Albumin 2.5 G/DL (3.4-5.0) L Globulin 2.8 g/dL Albumin/Globulin Ratio 0.9 (1.0-2.7) L Height (Feet): 6 Height (Inches): 4.00 Weight (Pounds): 226 Medications Current Medications Medications (Trade) Dose Ordered Sig/Maritza Route PRN Reason Start Time Stop Time Status Last Admin Dose Admin Miscellaneous Medication (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) 1 ea Q12HR@0700,1900 MISC 08/29/17 19:00 08/31/17 18:59 08/29/17 19:14 Morphine Sulfate 30 ml @ 5 mls/hr Q24H PRN IV COMFORT CARE MEASURES 08/29/17 19:15 08/31/17 19:14 08/29/17 20:24 Morphine Sulfate (Morphine Sulfate) 4 mg Q1H PRN IVP RESP RATE>40, *COMFORT CARE* 08/29/17 19:15 09/05/17 19:14 Assessment/Plan Problem List: (1) Pleural effusion on right ICD Codes: J90 - Pleural effusion, not elsewhere classified SNOMED: 22191748 (2) CHF (congestive heart failure) ICD Codes: I50.9 - Heart failure, unspecified SNOMED: 28416510 (3) Multiple organ failure SNOMED: 30209926 (4) ESRD (end stage renal disease) ICD Codes: N18.6 - End stage renal disease SNOMED: 42656381 (5) Shock ICD Codes: R57.9 - Shock, unspecified SNOMED: 53983027 (6) Atrial fibrillation with RVR ICD Codes: I48.91 - Unspecified atrial fibrillation SNOMED: 779505348865508 (7) DNR (do not resuscitate) ICD Codes: Z66 - Do not resuscitate SNOMED: 162010694 Status: deteriorating Assessment/Plan Admit to ICU Pulmonology, cardiology, nephrology consulted. Per patient's and family's wishes, will continue palliative care at this time. Continue morphine gtt Discussed with family at bedside, RN, and all consultants involved. Total time spent: 70 min>50% involved in care and coordination Rina Murrell N.P. Aug 29, 2017 23:29
[2017-08-30] VITALS: BP 69/37
[2017-08-30] MEDS: PCA Morphine 1mg/ml 30 ML IV PRN (01:59)
--- NOTE | 2017-08-30 06:45 | Consultation ---
DATE OF CONSULTATION: 08/29/2017 NOTE: POOR AUDIO HEMATOLOGY/ONCOLOGY CONSULTATION CONSULTING PHYSICIAN: Keanu Berger M.D. REQUESTING PHYSICIAN: Bing Macdonald M.D. REASON FOR CONSULTATION: Evaluation of anemia. IDENTIFICATION DATA: Dear Dr. Macdonald. The patient is a pleasant 81-year-old male with past medical history, which is significant for end-stage renal disease, CHF, and pleural effusion on the right side, at this time presents to [facility] with generalized weakness and decreased blood pressure, noted to be hypotensive in the field. Prior medical history as well is significant for end-stage renal disease, on dialysis began a week prior to CHF again. Per anesthesiologist at [facility] the patient is DNR on pressors. Noted to have increased nonproductive cough, noted to be taking . He is at this time making urine, however, he has been deteriorating and reviewed medical notes. In addition, I discussed the patient with nurse. The patient currently on comfort care measures. PAST MEDICAL HISTORY: As noted above. PAST SURGICAL HISTORY: None noted. ALLERGIES: No known drug allergies. FAMILY HISTORY: Noncontributory, but difficult to obtain given mental status. REVIEW OF SYSTEMS: Difficult to obtain given mental status. PHYSICAL EXAMINATION: VITAL SIGNS: Reviewed. GENERAL: No distress. PULMONARY: Decreased breath sounds. The patient has difficulty breathing . CARDIOVASCULAR: Regular rate. No S3 or S4. ABDOMEN: Soft, nontender, and nondistended. EXTREMITIES: No cyanosis, swelling, or edema. LABORATORY AND DIAGNOSTIC DATA: WBC 3.8, hemoglobin 7.7, MCV 118, and platelet count 288,000. BUN of 23 and creatinine of 5. ASSESSMENT AND RECOMMENDATIONS: 1. Anemia due to underlying chronic disease. Continue to closely monitor . Hemoglobin goal is above 7. Continue to closely monitor, however, the patient is on comfort care, therefore, no intervention recommended. 2. Macrocytosis, potentially secondary to alcohol abuse. 3. Anemia due to underlying kidney disease that is chronic in nature. 4. Macrocytosis. Abnormal labs. Continue to closely monitor, potentially secondary to B12 and folic acid deficiency. 5. on the right side. 6. Atrial fibrillation with rapid ventricular response, recently on Eliquis. Medications will continue. 7. 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 I appreciate the consultation. Keanu Berger M.D. DR: Delano JOB#: [id number] CC:
[2017-08-30] MEDS ORDERED: Dyna-Hex 2% Top Sol 2oz TOPIC SCH (20:00)
--- NOTE | 2017-08-31 10:09 | Discharge Summary ---
Discharge Summary Hospital Course Date of Admission Aug 28, 2017 at 20:17 Date of Discharge Aug 30, 2017 at 07:45 Admitting Diagnosis sepsis afibr rvr, esrd HPI Ever Akins is a 81 year old male who was admitted on Aug 28, 2017 at 20: 17 for Sepsis/Atrial Fibrilation/Rapid Ventricular Rate Hospital Course summary #[id number] Discharge Discharge Disposition Patient Discharge Diagnoses: Discharge Instructions Discharge Instructions Special Instructions I have been assigned to complete a D/C Summary on this account. I was not involved in the patient management Thais Taylor NP (Vanchtein) Aug 31, 2017 10:09
--- NOTE | 2017-09-01 05:15 | Discharge Summary 2 SIG ---
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 The patient missed hemodialysis on Wednesday since he did not feel good. The patient with Do Not Resuscitate status per his wishes. The patient had nonproductive cough. The patient was taking Eliquis for atrial fibrillation, which was chronic. The patient reported recent hospitalization at [facility]. Upon evaluation, the patient was afebrile, blood pressure was low, the patient placed on four liters of nasal cannula, and O2 saturation 100%. No leukocytosis, hemoglobin- 8.5, and hematocrit- 25.6. BUN -22 and creatinine -4.7 consistent with known history of end-stage renal disease. Troponin negative. EKG showed atrial fibrillation with a heart rate of 130. Chest x-ray revealed cardiomegaly with congestive heart failure and right pleural effusion. The patient initially started on the BiPAP and tolerated it, however briefly only and subsequently decided he could not tolerate BiPAP and was transitioned to oxygen via nasal cannula. Blood pressure was low -74/52. The patient started on phenylephrine drip. Central line was placed for pressors, and the patient was transferred to ICU for further management. ADMITTING DIAGNOSES: 1. Hypotension, likely shock. 2. Atrial fibrillation with rapid ventricular response. 3. Congestive heart failure. 4. Right pleural effusion. 5. End-stage renal disease, on hemodialysis. 6. Anemia. 7. Acute encephalopathy. 8. Multiorgan failure. HOSPITAL COURSE: The patient admitted. The patient was initially on pressors. The patient started on empiric antibiotics. Cardiology, Pulmonology, and Nephrology consults were requested. Subsequently, family decided that they did not want any aggressive treatment, given the patient multiple comorbidities. Pressors were stopped. Antibiotics were stopped. No further dialysis. Per patient and family wishes, they wanted to proceed with comfort care. At that time, the patient was started on the morphine drip. Supportive care provided. Hemoglobin the next day- 7.7 and hematocrit -23.5. The patient's family declined transfusion. Blood culture preliminary negative. The patient appeared to be in no distress on morphine drip. Patient subsequently was pronounced at 03:58 a.m. on 08/30/2017. Cause of : cardiopulmonary arrest. FINAL DIAGNOSES: 1. Shock. 2. Multiorgan failure. 3. Atrial fibrillation with rapid ventricular response. 4. End-stage renal disease, on hemodialysis. 5. Congestive heart failure with low ejection fraction. 6. Right pleural effusion. 7. Acute encephalopathy. 8. Comfort care. 9. Severe anemia. Bing Macdonald M.D. I have been assigned to dictate discharge summary on this account and I was not involved in the patient's management. [facility] N[facility] DR: RAMO JOB#: [id number] CC: ON
== END 2017-08-30 07:45 | disposition expired | DRG 291 ==
LOC: EDBD 19:07 → EMR 19:10 → ICU 20:17 → EDBEDREQ 20:37 → 4E 08-29 19:05
PROC: 05HN33Z Insertion of Infusion Device into Left Internal Jugular Vein, Percutaneous Approach (ICD-10-PCS; principal; 2017-08-28)
DX: R57.9 Shock, unspecified (principal); N18.6 End stage renal disease; G93.40 Encephalopathy, unspecified; J90 Pleural effusion, not elsewhere classified; I13.2 Hypertensive heart and chronic kidney disease with heart failure and with stage 5 chronic kidney disease, or end stage renal disease; I50.9 Heart failure, unspecified; Z51.5 Encounter for palliative care; Z66 Do not resuscitate; I48.91 Unspecified atrial fibrillation; Z99.2 Dependence on renal dialysis; Z79.01 Long term (current) use of anticoagulants; D63.1 Anemia in chronic kidney disease; Z95.810 Presence of automatic (implantable) cardiac defibrillator; I51.7 Cardiomegaly; R00.0 Tachycardia, unspecified
CPT/HCPCS: 36415; 71045; 80053; 82248; 82550; 82553; 83605; 83735; 84100; 84484; 84550; 85007; 85025; 87040; 87070; 87081; 87181; 87205; 93005; 94664; 99291; J2370